=== PATIENT | female | born 1970 | race Caucasian/White ===

== ENCOUNTER → 2017-02-26 | Emergency (ER) | payer OTHER ==
[~2017-02-26] VITALS: Ht 157.5 cm; Wt 65.8 kg
[~2017-02-26] MED LIST: ADVAIR 250-501 EACH INH; CLARITIN10 M2 PO; VENTOLIN HFA18 GM INH
== END ==
LOC: ED 14:00
DX: J45.901 Unspecified asthma with (acute) exacerbation (principal); Z88.2 Allergy status to sulfonamides; Z79.899 Other long term (current) drug therapy
CPT/HCPCS: 94640; 99283